=== PATIENT | male | born 1985 | race Caucasian/White ===

== ENCOUNTER 2019-07-01 16:17 | Emergency (ER) | payer OTHER ==
[~2019-07-01] VITALS: Ht 175.3 cm; Wt 61.4 kg
[2019-07-01] MEDS ORDERED: HYDROCODONE/ACETAMINOPHEN 5-325 MG TABLET PO ONE (17:15)
[2019-07-01] MEDS ORDERED: KETOROLAC TROMETHAMINE 30 MG/ML VIAL IM ONE (17:15)
[2019-07-01] MEDS ORDERED: CLINDAMYCIN HCL 150 MG CAPSULE PO ONE (17:15)
[2019-07-01 18:15] VITALS: BP 126/69
[2019-07-02] MEDS ORDERED: HYDR-4455 PO (09:10)
[2019-07-02] MEDS ORDERED: IBUP-2271 PO (09:11)
[2019-07-02] MEDS ORDERED: CLIN150C9 PO (09:11)
== END 2019-07-01 18:57 | disposition home or self-care (01) ==
LOC: EMS 16:21
DX: S02.5XXA Fracture of tooth (traumatic), initial encounter for closed fracture (principal); K30 Functional dyspepsia; F17.210 Nicotine dependence, cigarettes, uncomplicated; X58.XXXA Exposure to other specified factors, initial encounter; Y93.89 Activity, other specified; Y92.89 Other specified places as the place of occurrence of the external cause; Y99.8 Other external cause status
CPT/HCPCS: 96372; 99283; 99406; J1885

== ENCOUNTER 2019-07-02 09:02 | Emergency (ER) | payer SELFPAY ==
[~2019-07-02] VITALS: Ht 172.7 cm; Wt 61.4 kg
[2019-07-02] MEDS ORDERED: HYDR-4455 PO (09:10)
[2019-07-02] MEDS ORDERED: CLIN150C9 PO (09:11)
[2019-07-02] MEDS ORDERED: IBUP-2271 PO (09:11)
[2019-07-02] MEDS ORDERED: LIDOCAINE 1% 10 ML VIAL INJ ONE (10:30)
[2019-07-02] MEDS ORDERED: BUPIVACAINE HCL/PF 0.25% 10 ML VIAL INJ ONE (10:30)
[2019-07-02 11:13] VITALS: BP 125/73
== END 2019-07-02 11:15 | disposition home or self-care (01) ==
LOC: EMS 09:04
DX: K02.9 Dental caries, unspecified (principal); F17.210 Nicotine dependence, cigarettes, uncomplicated
CPT/HCPCS: 64400; 99284; J3490 ×2; 99406